=== PATIENT | male | born 1975 ===

== ENCOUNTER 2022-07-28 06:53 | Day surgery (SDC) | payer OTHER ==
[2022-07-28] MEDS ORDERED: TRAMADOL HCL50 MG PO (09:43)
[2022-07-28] MEDS ORDERED: MIRALAX17 GM PO (09:43)
[2022-07-28] MEDS ORDERED: KETO10TA2 PO (09:43)
[2022-07-28] MEDS ORDERED: TYLENOL ARTHRI650 MG PO (09:43)
== END 2022-07-28 19:00 | disposition home or self-care (01) ==
LOC: CIR.AMB 06:53
PROVIDERS: ATTEND Surgery
DX: K40.90 Unilateral inguinal hernia, without obstruction or gangrene, not specified as recurrent (principal); Z20.822 Contact with and (suspected) exposure to COVID-19